=== PATIENT | female | born 1965 | race Caucasian/White ===

== ENCOUNTER 2016-11-20 19:53 | Emergency (ER) | payer OTHER ==
--- NOTE | ~2016-11-20 | CR141 ---
STS. [facility] A Service of [facility] RADIOLOGY TEXT RESULTS PATIENT: ELIN PHILLIPS LOCATION: SED : 65 UNIT #: [id number] AGE: [address]: FOREST MATIAS SEX: F ORDER DR: [id number] [place] [id number] E MR#: [id number] Acc #: [id number] NAME: ELIN PHILLIPS : 1965 SEX: F STUDY DATE/TIME: 11/20/2016 19:24 UNIT: SED ROOM: STUDY DESCRIPTION: CR Hand Min 3 Views Lt Attending Physician: Forest Matias Ordering Physician: Staff Doctor Not On Primary Care Physician: David Rueda M.D. MEDICAL IMAGING REPORT This report is preliminary unless electronic signature is present. EXAM Left hand 3 views HISTORY Pain and swelling, fell while getting out of tub today, forearm and hand pain. COMPARISON Left forearm 07/17/2016. FINDINGS 3 views of the left hand demonstrates postsurgical changes from ORIF of a transverse fracture of the distal radius with a volar plate and screws. Fracture remains at least partially visualized but some sclerosis and bridging callus noted. Intact instrumentation. 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 Normal carpal alignment. Mild soft tissue swelling over the ulnar side of the wrist. Dictated by... Tom Scott M.D. THIS IS AN ELECTRONICALLY VERIFIED REPORT Tom Scott M.D. at 11/21/2016 5:03 PM PEARL/riki TD: 11/21/2016 08:01 JOB #: [id number] MEDICAL IMAGING REPORT
--- NOTE | ~2016-11-20 | CR132 ---
[facility] A Service of [facility] RADIOLOGY TEXT RESULTS PATIENT: ELIN PHILLIPS LOCATION: SED : 65 UNIT #: [id number] AGE: [address]: FOREST MATIAS SEX: F ORDER DR: [id number] [place] [id number] E MR#: [id number] Acc #: [id number] NAME: ELIN PHILLIPS : 1965 SEX: F STUDY DATE/TIME: 11/20/2016 19:24 UNIT: SED ROOM: STUDY DESCRIPTION: CR Forearm 2 View Lt Attending Physician: Forest Matias Ordering Physician: Physician Non-Staff Primary Care Physician: David Rueda M.D. MEDICAL IMAGING REPORT This report is preliminary unless electronic signature is present. EXAM Left forearm 2 views HISTORY Fell getting out of tub today, pain and swelling left forearm. COMPARISON Forearm films 07/17/2016 FINDINGS 2 views of the left forearm demonstrate plate and screw fixation of a transverse fracture of the distal radius with some fracture healing. There is ununited ulnar styloid fracture. No acute fracture is seen. Bone mineralization appears normal. Mild soft tissue swelling over the ulnar side of the wrist. Visualized elbow joint unremarkable. Dictated by... Tom Scott M.D. THIS IS AN ELECTRONICALLY VERIFIED REPORT Tom Scott M.D. at 11/21/2016 5:03 PM Andrea TD: 11/21/2016 08:00 JOB #: [id number] MEDICAL IMAGING REPORT
[~2016-11-20 19:53] MED LIST: ADVIL200 M1 PO; ALBUTEROL17 GM INH; AMOXICILLIN PO; AMOXICILLIN875 MG PO; ATIVAN0.5 MG PO; AUGMENTIN PO; BACTRIM DS TABL1 TA1 PO; BACTRIM DS TABL1 TAB PO; CLARITIN10 M2; CLONIDINE HCL0.1 MG; COMBIVENT RESPIM4 GM IH; FLEXERIL10 M1 PO; FLEXERIL10 MG; GABAPENTIN600 MG PO; HYDROCODONE 7.5/325 PO; IBUPROFEN PO; KEFLEX500 MG PO; KLONOPIN PO; LITHIUM PO; LORTAB 2.5/5001 TAB PO; LORTAB 5-325 M1 EACH PO; LORTAB 7.51 TAB 7.5/ PO; NEURONTIN600 MG; NEURONTIN600 MG PO; NORVASC PO; NORVASC10 MG PO; OMNARIS; OYSTER CALCIUM500 MG PO; PANTOPRAZOLE SO40 MG PO; PENICILLIN PO; PHENERGAN PO; PREDNISONE PO; PROTONIX; SEROQUEL PO; SPIRIVA18 MCG PO; SYMBICORT INH; TESSALON200 MG PO; VALACYCLOVIR500 MG PO; VALTREX; VICODIN 5/500 T1 TAB PO; VISTARIL50 MG PO; VIT E PO; VOLTAREN50 MG; VOLTAREN75 MG PO; ZIPRASIDONE HCL20 MG PO; ZOVIRAX500 MG PO; ZYRTEC PO; [UNRECOGNIZED DRUG - OTHER]; [UNRECOGNIZED DRUG - REMARK]
== END 2016-11-20 20:38 | disposition home or self-care (01) ==
LOC: SED 19:53
DX: S63.502A Unspecified sprain of left wrist, initial encounter (principal); S60.222A Contusion of left hand, initial encounter; I10 Essential (primary) hypertension; J44.9 Chronic obstructive pulmonary disease, unspecified; B19.20 Unspecified viral hepatitis C without hepatic coma; F17.210 Nicotine dependence, cigarettes, uncomplicated; Z88.5 Allergy status to narcotic agent; Z79.899 Other long term (current) drug therapy
CPT/HCPCS: 29125; 73090; 73130; 99283

== ENCOUNTER 2017-02-25 23:32 | Emergency (ER) | payer OTHER | END 2017-02-26 00:40 | disposition home or self-care (01) | LOC: SED 23:32 | DX: R21 Rash and other nonspecific skin eruption (principal); K21.9 Gastro-esophageal reflux disease without esophagitis; J44.9 Chronic obstructive pulmonary disease, unspecified; F31.9 Bipolar disorder, unspecified; F17.200 Nicotine dependence, unspecified, uncomplicated; Z98.51 Tubal ligation status; Z90.49 Acquired absence of other specified parts of digestive tract; Z88.5 Allergy status to narcotic agent | CPT/HCPCS: 99282 ==